=== PATIENT | female | born 1930 | race Caucasian/White ===

== ENCOUNTER 2016-08-09 10:13 | Outpatient (CLI) | payer OTHER, MEDICAID ==
[~2016-08-09 10:13] MED LIST: ASA81 PO; FOLI-43 PO; LOSA50TA3 PO; METO25TA3 PO; NEPH PO; ZOLP10TA2 PO
== END 2016-08-09 18:17 | disposition home or self-care (01) ==
LOC: SRD 10:13
PROVIDERS: ATTEND Internal Medicine
DX: K04.8 Radicular cyst (principal); M81.0 Age-related osteoporosis without current pathological fracture
CPT/HCPCS: 71020-TC